=== PATIENT | female | born 1965 | race American Indian/Alaskan Native ===

== ENCOUNTER 2021-04-12 09:19 | Outpatient (CLI) | payer BC ==
[2021-04-12 10:10] LABS: Basophils % (Auto) 0.8 % (0.0-1.8); Eosinophils # (Auto) 0.2 K/mm3 (0.0-0.4); Eosinophils % (Auto) 2.8 % (0.0-4.3); Hematocrit 40.9 % (30.3-42.9); Hemoglobin 13.3 gm/dl (10.1-14.3); Lymphocytes % (Auto) 34.3 % (13.4-35.0); Mean Corpuscular HGB Conc 32 % (30-34); Mean Corpuscular Volume 90 fl (79-97); Monocytes # (Auto) 0.4 K/mm3 (0.0-0.8); Monocytes % (Auto) 6.3 % (0.0-7.3); Platelet Count 397 K/mm3 (140-440); Red Blood Count 4.57 M/mm3 (3.65-5.03); Red Cell Distribution Width 16.5 % (13.2-15.2)
[2021-04-12 10:14] LABS: Alanine Aminotransferase 9 units/L (7-56); Blood Urea Nitrogen 11 mg/dL (7-17); Calcium 9.6 mg/dL (8.4-10.2); HDL Cholesterol 64 mg/dL (40-59); Hemolysis Index 6; LDL Cholesterol,Direct 126 mg/dL (50-130)
[2021-04-12 10:27] LABS: BUN/Creatinine Ratio 16
== END 2021-04-12 09:20 | disposition home or self-care (01) ==
LOC: LAB 09:19
PROVIDERS: ATTEND Internal Medicine
DX: Z00.00 Encounter for general adult medical examination without abnormal findings (principal); E55.9 Vitamin D deficiency, unspecified; R73.9 Hyperglycemia, unspecified; E66.01 Morbid (severe) obesity due to excess calories; I10 Essential (primary) hypertension
CPT/HCPCS: 36415; 80053; 80061; 82306; 83036; 84443; 85025

== ENCOUNTER 2021-04-15 08:43 | Outpatient (CLI) | payer BC | END 2021-04-15 08:44 | disposition home or self-care (01) | LOC: MAMMO 08:43 | PROVIDERS: ATTEND Internal Medicine | DX: Z12.31 Encounter for screening mammogram for malignant neoplasm of breast (principal) | CPT/HCPCS: 77067 ==

== ENCOUNTER 2021-04-29 11:09 | Outpatient (CLI) | payer BC | END 2021-04-29 11:10 | disposition home or self-care (01) | LOC: LAB 11:09 | PROVIDERS: ATTEND Obstetrics & Gynecology | DX: Z01.419 Encounter for gynecological examination (general) (routine) without abnormal findings (principal) | CPT/HCPCS: 36415 ==